=== PATIENT | female | born 1940 | race Caucasian/White ===

== ENCOUNTER 2020-09-11 11:34 | Emergency (ER) | payer MEDICARE, BC ==
[~2020-09-11] VITALS: Ht 152.4 cm; Wt 102.5 kg
--- NOTE | 2020-09-11 11:52 | NUR ---
MARIA ISABEL FROM HOME TO ER BED 12. AAOX4. NOT IN RESP DISTRESS. NON AMBULATORY D/T DIFFICULTY WALKING. PT REPORTS THAT SHE IS AWAITING FOR A KNEE SURGERY. PT AMBULATES WITH A WHEELCHAIR. PT LIVES ALONE AND HAVE FALLEN ON MONDAY EVENING. PT IS HERE ASKING FOR A STEVEDORING SUPERINTENDENT FOR RESOURCES OR BE PLACED IN AN ASSISTED LIVING. AWAITING MD FOR EVAL.
--- NOTE | 2020-09-11 14:15 | NUR ---
Sales Support Specialist consult: SS consult requested to discuss discharge plan. Patient is a 80-year-old, female. SW met with patient at her bedside in the emergency department. Patient was alert and oriented x4. Patient presented with a depressed mood and was tearful. Patient appeared appropriately groomed. Per chart, patient was brought in from home to the emergency department on 09/11/20. Patient stated that she currently lives alone at [address] [place] [address]; [phone]. Patient requested to be placed at an assisted living or longterm facility. Patient stated that she has no current source of support. Patient reported that she is non-ambulatory and uses a wheelchair. Patient stated that due to her current condition patient is concerned of how she will care for herself when she is discharged. Patient stated that she currently uses Access for transportation and regularly visits her PCP. Patient stated that she visited her PCP 2 weeks ago. Patient has made attempts to locate support services but stated, "I'm feeling overwhelmed." SERVANDO offered senior resources to the patient. Patient accepted the resources and thanked SERVANDO. SERVANDO notified ISABEL Hyatt about D/C plan to SNF. ISABEL Hyatt to follow up. Dr. Tolliver notified. PLAN: ISABEL Hyatt to follow up with D/C plan to SNF. SS will remain available as needed. SENIOR RESOURCES: ABUSE PREVENTION: ELDER ABUSE HOTLINE (05/09) ADULT PROTECTIVE SERVICES HOTLINE LONG-TERM CARE [facility] - [facility] Region AREA ON AGING (HOTLINE) ADULT DAY HEALTH CARE CARE CENTERS: Private pay or [facility] funded adult day care [facility] , [facility] , [facility] Adult Care Center , [facility] Adult Day Health Care , [facility] Adult Day Health Care , [facility] Adult [facility] , [facility] , Solo [facility] , Telephone ALZHEIMER'S DISEASE/DEMENTIA: Alzheimer's Association Helpline [facility] Chapter www.alz.org/[facility] Department of Aging www.lacity.org Family Caregiver Mchenry www.caregiver.org [place] Caregiver Resources Center/Family Support www.[facility].org CANCER RESOURCES: Afghan Cancer Society www.cancer.org Cancer Support Community www.CancerSupportVvsb.org: CancerCare www.cancercare.org [facility] Cancer Support Center www.[facility].org FIRSTHEALTH HEALTH ASSOCIATIONS: AARP www.aarp.org ALS Association (ask for Annamaria) www.als.org Afghan Diabetes Association www.diabetes.org Afghan Heart Association www.heart.org Afghan Lung Association www.lungusa.org Afghan Parkinson Disease Association www.apdaparkinson.org Afghan [place] , www.redcross.org Arthritis Foundation www.arthritis.org Crohn's & Colitis Foundation of Afghan www.ccfa.org/chapters/chiki National Multiple Sclerosis Society www.nationalmssociety.org Myasthenia Gravis Foundation www.myasthenia-ca.org National Stroke Association www.stroke.org CONSERVATORSHIP & GUARDIANSHIP: AARP Renay Lopez Legal Services Center for Health Care Rights Eldercare Information and Referral Methods Specialist Engineer Foundation [facility]: [facility] Bar Referral Service [facility] Legal Services Office of the Public Guardian [place] EYESIGHT DISORDER RESOURCES: Afghan Macular Degeneration Foundation [facility] www.[facility].org GRIEF AND BEREAVEMENT RESOURCES: [facility] [place] , [facility] THE HOPE Connection , [facility] , [place] HEARING DISORDER RESOURCES: [place] Telephone Access Program Deaf and Disabled Telecommunications Program www.ddtp.[facility].ca.gov HearRx Hearing Centers ([place]) Better Hearing Systems , [place] GLAD ([facility] Agency on Deafness) V/ TTY; Computer Installation Engineer , [facility] Hearing [facility] -low income hearing aid assistance www.hca [facility] emergencyfoundation.org [place] [facility] , Radha HELP AT HOME - CAREGIVER SUPPORT: In Home Support Services (Must have Medi-Renetta to be eligible) *Ask for a list of agencies that provide services to assist with care in the home. Local Senior Centers also have listings of care providers. HOME SAFETY MODIFICATIONS AND EQUIPMENT: Senior centers have additional referrals. [place] Housing and Community Investment Dept. Handyworker Program (low income) or Visit http://hcidla.[facility].org/tau-mmuivt-im for more information National Seating and Mobility and/or ; Forever Active www.foreverReformTech [place] AB.Sureline Systems Stay Home Safe www.Stayhomesafe.com LIFE ALERT RESPONSE SYSTEM: Skyepack Services 433-103-4964 www. Area 52 Games Life Alert 938-079-3079 www.baixing.com.Sureline Systems Life Station 116-961-3713 www.NeuralStemation.Sureline Systems Safe Return 607-155-6289 www.FINXI.or/safereturn Cell Phones for Seniors www.Silicon Frontline Technology MEALS AND FOOD PROGRAMS: Liberal Meals on Wheels [phone] [place] Meals on Wheels [phone] [facility] [phone] [place] to the Homebound [phone] [place] to the Homebound [phone] [facility] to the Homebound [phone] [facility] to the Homebound [phone] [facility] Hospital[facility] [phone] [facility] [phone] ONE Generation [phone] [facility] [phone] [facility] [phone] Meals on Wheels [phone] For all ages: $6.85/ meal w side. Delivered M-F from 10 am-1pm. Application and payment is done over the phone. Frozen meals available for weekends. Emergency Food [facility] [phone] [facility] Sales Support Specialist [phone] [facility] [phone] [facility]- Brown bag lunches [phone] [facility] [phone] MEAL/GROCERY DELIVERY PROGRAMS: Ilana's Senior Gourmet Meals [phone]- [facility] [phone]- [facility] Magic Kitchen [phone] Mom's Meals [phone] (ask Amador for Discount Select grocery stores may provide delivery. MEDICAL INSURANCE SUPPORT SERVICES: Center for Health Care Rights [phone] Health Insurance Counseling/Advocacy Programs (HICAP)-Must have Medicare. Offers counseling for Medi-Renetta eligibility 730-485-9187 Department of Public Sales Support Specialist 933-015-0370 www.acadia healthcare.ca.gov Medicare 711-116-3993 www.socialsecurity.org Social Security 340-060-0139 SENIOR ACTIVITY PROGRAMS: *Contact a local senior center, adult school, recreation facility or community college for education, fitness, recreation, and social programs. Aquatic Therapy and Adapted Exercise programs through [facility] [phone] [facility] at [facility] [phone] www.[facility]/encore U- Senior Friends 611-054-4297 [place] Senior Programs 119-961-2151 www.oasisnet.org Suddenly 65 www.kbmyzrbc52.Sureline Systems SENIOR CENTERS: [facility] [phone] [facility] [place] [phone] [facility] [phone] [facility] [phone] [facility] [phone] [facility] [phone] [facility] [phone] [facility] [phone] [facility] [phone] [facility] [phone] [facility] [phone] [facility] [phone] [facility] [phone] TRANSPORTATION: Local [facility] may have applications for transportation programs and additional resources. ACCESS Services [phone] Transportation for seniors and disabled persons 7 days a week requiring 254 hr. advance reservation. Must apply and register for program alonso eligible. CITY RIDE 608-521-8559 or [phone] Transportation for seniors and persons with ADA card/metro disabled card in the [facility]. M-F only. Must register for services. ONE GENERATION [phone] Serves 65 years + in conjunction with city ride program. Must be registered with both programs. A to B Transport [phone] Provides wheelchair/gurney van service. Adult Medical Transport [phone] Accepts Medi-renetta with prior authorization. Care Van [phone] Provides wheelchair Transport. [facility] Wide Transportation [phone] Provides gurney service [facility] [phone] Gurney Transport. [facility] Transportation [phone] wheelchair & gurney transport [facility] Transportation [phone] wheelchair & gurney transport [place] Non-Emergency Transport [phone] wheelchair & gurney transport [facility] [phone] Short Term Transportation primarily for adults with disabilities on social security income. Nominal fee may apply and a reservation is required. City Cab [phone] or [phone] [facility] [phone] [place] [address] Referral Services -[phone] For additional programs & services
[2020-09-11 15:04] VITALS: BP 142/65
--- NOTE | 2020-09-11 15:06 | NUR ---
PT ACCEPTED AT [facility]. CALL [phone] ELECTRIC BATH ATTENDANT AT 1464
--- NOTE | 2020-09-11 15:38 | NUR ---
REPORT GIVEN TO NURSE ROCHE AT THE [facility].
--- NOTE | 2020-09-11 15:41 | NUR ---
COVID SWAB DONE AND SENT TO THE LAB
--- NOTE | 2020-09-11 15:47 | NUR ---
Note veronica in ED - 09/11/20 at 1548 by ALEENA AMWEST 26 AT PT BEDSIDE FOR TRANSPORT TO [facility] PT IS IN STABLE CONDITION. REPORT WAS GIVEN.
--- NOTE | 2020-09-11 15:48 | NUR ---
AMWEST 26 AT PT BEDSIDE FOR TRANSPORT TO [facility] PT IS IN STABLE CONDITION. REPORT WAS GIVEN.
== END 2020-09-11 15:53 ==
LOC: ER 12:34
DX: M19.90 Unspecified osteoarthritis, unspecified site (principal); G89.4 Chronic pain syndrome; Z74.09 Other reduced mobility; E66.9 Obesity, unspecified; Z68.41 Body mass index [BMI] 40.0-44.9, adult; I10 Essential (primary) hypertension; Z99.3 Dependence on wheelchair; M25.562 Pain in left knee; M25.561 Pain in right knee; M25.572 Pain in left ankle and joints of left foot; M25.571 Pain in right ankle and joints of right foot; Z20.822 Contact with and (suspected) exposure to COVID-19
CPT/HCPCS: C9803

== ENCOUNTER 2020-11-17 11:33 | Emergency (ER) | payer MEDICARE, BC ==
[~2020-11-17] VITALS: Ht 167.6 cm; Wt 87.5 kg
--- NOTE | 2020-11-17 11:47 | NUR ---
PT TO ED BED 07 C/O ABDOMINAL DISCOMFORT X 5 DAYS. PT STATED SHE IS AFRAID OF EATING BECAUSE EVERYTIME SHE GETS DIARRHEA. PT DENIES FEVER. STABLE VITALS. AWAITING MD ALVA.
--- NOTE | 2020-11-17 11:49 | NUR ---
DR MARAVILLA AT BEDSIDE FOR EVAL.
[2020-11-17] MEDS ORDERED: IV NS 0.9% 1,000 ML BAG IV ONE (12:00)
[2020-11-17] MEDS ORDERED: ONDANSETRON HCL/PF 4 MG/2 ML VIAL IVP ONE (12:00)
[2020-11-17] MEDS ORDERED: ONDANSETRON HCL/PF 4 MG/2 ML VIAL ONE (12:04)
--- NOTE | 2020-11-17 12:25 | NUR ---
ORDERING BOX OPERATOR AT BEDSIDE FOR BLOOD DRAW.
[2020-11-17 12:55] LABS: BASOPHILS # (AUTO) 0.1 K/uL (0.0-0.2); BASOPHILS % (AUTO) 1.3 % (0.0-2.0); EOSINOPHILS % (AUTO) 1.6 % (0.0-6.0); HEMATOCRIT 33 % (33-45); LYMPHOCYTES % (AUTO) 12.5 % (20.0-44.0); MEAN CORPUSCULAR HGB CONC 34 g/dl (31.0-36.0); MEAN CORPUSCULAR VOLUME 83 fL (82-100); MONOCYTES # (AUTO) 0.6 K/uL (0.1-1.30); MONOCYTES % (AUTO) 7.9 % (2.0-12.0); NEUTROPHILS # (AUTO) 6.1 K/uL (1.8-8.9); NEUTROPHILS % (AUTO) 76.7 % (43.0-81.0); PLATELET COUNT (AUTO) 438 K/uL (150-450); RED BLOOD CELL COUNT(AUTO) 3.94 MIL/uL (4.0-5.2); WHITE BLOOD COUNT (AUTO) 7.9 K/uL (4.3-11.0)
[2020-11-17 13:16] LABS: ALANINE AMINOTRANSFERASE 13 U/L (12-78); ALBUMIN 3.1 g/dL (3.4-5.0); ALKALINE PHOSPHATASE 102 U/L (46-116); ASPARTATE AMINOTRANSFERASE 13 U/L (15-37); BILIRUBIN,DIRECT 0.1 mg/dL (0.0-0.2); BILIRUBIN,TOTAL 0.6 mg/dL (0.2-1.0); CALCIUM, SERUM 8.8 mg/dL (8.5-10.1); CARBON DIOXIDE 19 mmol/L (21-32); CHLORIDE 99 mmol/L (98-107); CREATININE 3.3 mg/dL (0.6-1.3); GLUCOSE 105 mg/dL (74-106); LIPASE 171 U/L (73-393); POTASSIUM 4.9 mmol/L (3.5-5.1); SODIUM SERUM 129 mmol/L (136-145); TOTAL PROTEIN, SERUM 7.3 g/dL (6.4-8.2)
[2020-11-17 13:29] LABS: UREA NITROGEN, BLOOD 92 mg/dL (7-18)
[2020-11-17] MEDS ORDERED: ONDA4TAB11 PO (13:47)
[2020-11-17] MEDS ORDERED: CIPR500T5 PO (13:47)
[2020-11-17 13:59] VITALS: BP 130/61
--- NOTE | 2020-11-17 14:00 | NUR ---
Patient discharged to home in stable condition. Written and verbal after care instructions given. Patient verbalizes understanding of instruction.IV removed. Catheter intact and site benign. Pressure and 4x4 applied to site. No bleeding noted.
== END 2020-11-17 14:00 | disposition home or self-care (01) ==
LOC: ER 11:45
DX: K52.9 Noninfective gastroenteritis and colitis, unspecified (principal); I13.0 Hypertensive heart and chronic kidney disease with heart failure and stage 1 through stage 4 chronic kidney disease, or unspecified chronic kidney disease; E11.22 Type 2 diabetes mellitus with diabetic chronic kidney disease; N18.9 Chronic kidney disease, unspecified; Z98.890 Other specified postprocedural states; Z88.2 Allergy status to sulfonamides; Z88.6 Allergy status to analgesic agent; Z88.5 Allergy status to narcotic agent; Z60.2 Problems related to living alone; Z79.899 Other long term (current) drug therapy
CPT/HCPCS: 36415; 80048; 80076; 83690; 84484; 85025; 96361; 96374; 99283; J2405; J7030